=== PATIENT | female | born 1975 | race Caucasian/White ===

== ENCOUNTER 2019-08-23 07:51 | Outpatient (CLI) | payer OTHER ==
[2019-08-22 12:07] VITALS: BMI 34.3
--- NOTE | 2019-08-23 08:56 | ULT ---
Exam: THYROID ULTRASOUND: HISTORY: Thyroid nodule. COMPARISON: None. FINDINGS: Thyroid isthmus measures 0.76 cm. Right thyroid lobe measures 4.0 x 1.5 x 1.6 cm. Left thyroid lobe measures 4.5 x 1.7 x 1.7 cm. Thyroid nodules: Isthmus: Solid nodule in the isthmus measures 1.2 x 0.8 x 1.4 cm. Left thyroid lobe: 3 separate solid nodules are noted in the left thyroid lobe. Largest nodule measur es 1.7 x 0.7 x 1.2 cm. Additional nodules measure 1.1 x 1.1 x 0.9 cm and 0.9 x 0.7 x 1.36. IMPRESSION: 1. Multiple solid nodules throughout the thyroid gland. 2. TI-RADS level TR4, moderately suspicious. Fine-needle aspiration of the nodule in the thyroid ist hmus as well as the largest nodule in the left thyroid lobe is recommended. Transcribed Date/Time: 08/23/2019 9:15 AM
--- NOTE | 2019-08-23 11:39 | CT ---
CT CHEST AND ABDOMEN AND PELVIS WITH IV CONTRAST: Date: 08/23/2019 Axial tomograms obtained with multiplanar reconstruction. INDICATION: Cervical cancer. Surgery includes hysterectomy and cholecystectomy. Follow-up and assess for recurren ce. No comparison studies. FINDINGS: CT CHEST: The lung headley are clear. No infiltrate or effusion. No evidence of pulmonary mass or nodule. The mediastinum is unremarkable. Bony thorax unremarkable. The left lobe of the thyroid is heterogeneous. This corresponds to thyroid ultrasound of 08/23/2019 w [facility] described thyroid nodules. IMPRESSION: 1. Unremarkable CT scan chest. 2. Heterogeneity in the thyroid is seen consistent with multiple thyroid nodules. See thyroid ultras ound exam. CT ABDOMEN AND PELVIS: Liver and spleen unremarkable. Pancreas unremarkable. Stomach and duodenum unremarkable. Post cholecy stectomy change. Adrenal glands and kidneys unremarkable. 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 Urinary bladder is distended and unremarkable. Small and large bowel loops unremarkable. Scattered diverticula in the left colon. Aorta normal caliber. Nonspecific periaortic lymph nodes are seen. There are paraaortic and aortocaval lymph nodes in the u pper and mid abdomen which are subcentimeter, with the largest measuring approximately 1.0 cm. Images through the pelvis show evidence of hysterectomy. No evidence of pelvic adenopathy. Osseous structures unremarkable. IMPRESSION: 1. Nonspecific paraaortic lymph nodes. 2. CT abdomen and pelvis otherwise unremarkable. POS: [facility]
== END 2019-08-23 07:52 | disposition home or self-care (01) ==
LOC: SCSCT 07:51
PROVIDERS: ATTEND Internal Medicine Hematology & Oncology
DX: C53.0 Malignant neoplasm of endocervix (principal); E04.1 Nontoxic single thyroid nodule; R94.6 Abnormal results of thyroid function studies
CPT/HCPCS: 71260; 74177; 76536

== ENCOUNTER 2019-08-23 09:55 | Day surgery (SDC) | payer OTHER ==
[2019-08-23 13:03] LABS: #Basophils 0.1 thou/uL (0.0-0.2); #Eosinphils 0.2 thou/uL (0.0-0.7); #Lymphocytes 1.7 thou/uL (1.20-3.40); #Monocytes 0.2 thou/uL (0.11-0.59); #Neutrophils 3.2 thou/uL (1.40-6.50); %Basophils 0.9 % (0.0-1.0); %Eosinophils 4.3 % (0.0-10.0); %Lymphocytes 31.3 % (21.0-51.0); %Neutrophils 59.4 % (42.0-75.0); Hemoglobin 12.2 g/dL (12.0-16.0); Mean Corpuscular HGB CONC 33.7 g/dL (32.0-36.0); Mean Corpuscular Hemoglobin 30.5 pg (27.0-31.0); Mean Corpuscular Volume 90.5 fL (78.0-98.0); Mean Platelet Volume 5.7 fL (7.4-10.4); Platelet Count 253 thou/uL (130-400); RBC Distribution Width 14.1 % (11.5-14.5); Red Blood Cell (RBC) Count 3.99 mill/uL (4.20-5.40); White Blood Cell (WBC) Count 5.4 thou/uL (4.8-10.8)
[2019-08-23 13:23] LABS: Anion Gap 13 mmol/L (10-20); BUN (Urea Nitrogen) 13 mg/dL (7.0-18.7); Calc. Creatinine Clearance 0 mL/min (70-130); Calcium 9.3 mg/dL (7.8-10.44); Carbon Dioxide 26 mmol/L (22-29); Chloride 103 mmol/L (98-107); Estimated GFR-MDRD 79; Glucose 83 mg/dL (70-105); Potassium 3.6 mmol/L (3.5-5.1); Sodium 138 mmol/L (136-145)
[2019-08-23] MEDS ORDERED: EPINEPHrine 1 MG/ML AMP ONE (13:40)
[2019-08-23] MEDS ORDERED: Bupivacaine 0.25% HCL 30 ML VIAL ONE (13:40)
[2019-08-23 13:42] LABS: Free Thyroxine Index 2.51 (1.4-3.1); T4 9.9 ug/dL (4.87-11.72)
[2019-08-23] MEDS ORDERED: PROPOFOL 40 ML ONE (13:48)
[2019-08-23] MEDS ORDERED: Fentanyl 100 MCG/2 ML VIAL ONE (13:48)
[2019-08-23] MEDS ORDERED: Midazolam HCl 2 mg/2 ml Vial ONE (14:05)
--- NOTE | 2019-08-23 16:05 | RAD ---
EXAM: CHEST ONE VIEW HISTORY: Post Mediport placement. COMPARISON: None FINDINGS: Left subclavian Mediport catheter is noted in place with tip overlying the expected location of the d istal SVC. No pneumothorax is visualized on this portable exam. Linear and minimal patchy density is seen in the medial right lung base probably attributable to atelectasis. The lungs otherwise appea r clear. The osseous structures are intact. IMPRESSION: Left subclavian Mediport catheter noted in place without pneumothorax visualized.
--- NOTE | 2019-08-23 16:50 | PDOC.OP ---
Operative Note - Operative Note Operative Note: PROCEDURE: Left subclavian MediPort placement with fluoroscopic guidance and ultrasound-guided FNA of bilateral thyroid nodules DATE OF PROCEDURE: 08/23/2019 SURGEON: Charo Ortiz M.D. PREOPERATIVE DIAGNOSIS: Endocervical cancer and bilateral thyroid nodules POSTOPERATIVE DIAGNOSIS: Endocervical cancer and bilateral thyroid nodules HISTORY: Patient has been diagnosed with cancer. Chemotherapy has been recommended and a Mediport has been requested for this. On preoperative examination a thyroid nodule was palpated and thyroid ultrasound today revealed TIRADS 4 thyroid nodules with biopsy recommended of the largest left thyroid nodule and the nodule in the right isthmus OPERATIVE PROCEDURE IN DETAIL: After informed consent was obtained and appropriate preoperative antibiotics administered, the patient was taken to the operating room and placed in supine position and monitored anesthesia care was administered. The patient was then placed in Trendelenburg position and the subclavian vein accessed easily on the first attempt with excellent flow of dark venous non-pulsatile blood. A wire threaded easily and was confirmed to be in the superior vena cava by fluoroscopy. Additional local anesthesia was infused to the skin and subcutaneous tissues lateral and inferior to the access site. The skin incision was extended from the wire laterally and a subcutaneous pocket developed inferiorly. A Mediport was obtained and confirmed to fit in the subcutaneous pocket. This was secured inferiorly to the pectoralis fascia with a Prolene suture, which was clamped, but not tied. The dilator and sheath were then placed over the wire and the dilator and wire removed leaving the sheath in place. The clamped MediPort tubing was tunneled through the sheath, which was then split and removed leaving the MediPort tubing in place. The tubing was adjusted until the tip was confirmed by fluoroscopy to be in the superior vena cava just above the atrium. The tubing was clamped at the skin level and cut and the tubing secured to the port, which was then placed in the subcutaneous pocket. The previously placed suture was secured and two additional sutures were placed to fix the port in place within the pocket. The port was aspirated with the Woods needle and had excellent flow of dark venous non-pulsatile blood and easily flushed without resistance. The subcutaneous tissues were closed with a running Monocryl suture , following which the skin was closed with a running subcuticular Monocryl suture. Dermabond dressings were placed and the hub was again accessed through the skin and confirmed to easily aspirate and easily flush. The course of the catheter was confirmed by fluoroscopy to be smooth with the tip appropriately located in the superior vena cava. Attention was then turned to the FNA. A sterile ultrasound probe was used to identify the largest thyroid nodule on the left side. FNA was then performed under direct ultrasound guidance. 3 passes were sent in CytoLyt and 3 in Afirma. The nodule in the right thyroid isthmus was then identified and the same procedure followed. Band-Aids were placed to both FNA sites and the patient was taken back to the day stay unit in good condition. Estimated blood loss was minimal. There were no complications. There were no specimens.
== END 2019-08-23 16:35 | disposition home or self-care (01) ==
LOC: SDC 09:55
PROVIDERS: ATTEND Surgery
PROC: B518ZZA Fluoroscopy of Superior Vena Cava, Guidance (ICD-10-PCS; principal; 2019-08-23)
PROC: BG44ZZZ Ultrasonography of Thyroid Gland (ICD-10-PCS; principal; 2019-08-23)
PROC: 02HV33Z Insertion of Infusion Device into Superior Vena Cava, Percutaneous Approach (ICD-10-PCS; principal; 2019-08-23)
PROC: 0GJK3ZZ Inspection of Thyroid Gland, Percutaneous Approach (ICD-10-PCS; principal; 2019-08-23)
DX: C53.0 Malignant neoplasm of endocervix (principal); E04.1 Nontoxic single thyroid nodule; F17.210 Nicotine dependence, cigarettes, uncomplicated; Z91.048 Other nonmedicinal substance allergy status
CPT/HCPCS: 71045; 80048; 84436; 84443; 84479; 85025; 88173; C1788; J0171; J0690; J1642; J2250; J2704; J3010; S0020